=== PATIENT | male | born 1960 | race Caucasian/White ===

== ENCOUNTER 2024-06-01 04:17 | Emergency (ER) | payer MEDICAID ==
[~2024-06-01] VITALS: Ht 175.3 cm; Wt 90.0 kg
== END 2024-06-01 04:20 ==
LOC: ER 04:17
DX: I46.9 Cardiac arrest, cause unspecified (principal); E11.9 Type 2 diabetes mellitus without complications; J44.1 Chronic obstructive pulmonary disease with (acute) exacerbation; I11.0 Hypertensive heart disease with heart failure; I50.9 Heart failure, unspecified
CPT/HCPCS: 92950; 99285; Z7610